=== PATIENT | male | born 1990 | race Two or more races ===

== ENCOUNTER 2020-10-12 18:14 | Emergency (ER) | payer OTHER ==
[~2020-10-12] VITALS: Ht 167.6 cm; Wt 80.3 kg
[2020-10-12 19:30] VITALS: BP 146/89
--- NOTE | 2020-10-12 20:08 | RAD ---
EXAM: XR HAND_LEFT 3 VIEWS 10/12/2020 7:38 PM CLINICAL INDICATION: Finger pain COMPARISON: None TECHNIQUE: 3 views of the left hand FINDINGS: There is a mildly displaced fracture of the fourth distal phalanx tuft. No other fracture or malalignment. Joint spaces are maintained. No focal soft tissue abnormality. IMPRESSION: Fourth distal phalanx tuft fracture. Electronically signed by: Patience Camacho MD (10/12/2020 8:06 PM) [id number]
--- NOTE | 2020-10-12 20:28 | PHYS DOC ---
Past Medical History Past Medical History: Other Additional Past Medical Histor: herniated discs Past Surgical History: No Surgical History Smoking Status: Current Every Day Smoker Additional Information: 0.5 ppd Alcohol Use: Occasionally General Adult EDM: Chief Complaint: FINGER INJURY HPI: HPI: Patient is a 30 year old male who presents to the ED today complaining of left ring finger injury, patient states he was installing a vending machine door and it fell on his left hand hitting the left ring finger and left middle finger. Patient is right-handed. Describes the pain as throbbing and constant. Rates the pain as 10 out of 10. States the pain is worse on touching the tip of the left ring finger. Review of Systems: Review of Systems: Constitutional: Denies fever or chills. [] Musculoskeletal: Reports left fingers injury Integument: Denies rash. [] Neurologic: Denies headache, focal weakness or sensory changes. [] Endocrine: Denies polyuria or polydipsia. [] Lymphatic: Denies swollen glands. [] Psychiatric: Denies depression or anxiety. [] Heart Score: C/O Chest Pain: N/A Risk Factors: Risk Factors: DM, Current or recent (<one month) smoker, HTN, HLP, family history of CAD, obesity. Risk Scores: Score 0 - 3: 2.5% MACE over next 6 weeks - Discharge Home Score 4 - 6: 20.3% MACE over next 6 weeks - Admit for Clinical Observation Score 7 - 10: 72.7% MACE over next 6 weeks - Early Invasive Strategies Allergies: Allergies: Allergies Coded Allergies Type Severity Reaction Last Updated Verified Penicillins Allergy Unknown 10/12/20 Yes Physical Exam: PE: Constitutional: Well developed, well nourished, no acute distress, non-toxic appearance. [] Skin: Warm, dry, no erythema, no rash. [] Back: No tenderness, no CVA tenderness. [] Extremities: Left ring finger with mild swelling on the tip of the finger, bruising noted on the tip of the finger. Tenderness on palpation of the tip of the finger. Adequate radial, medial, ulnar sensation to the left fingers. Full range of motion to the left fingers. +2 left radial pulse. Cap refill less than 2 seconds to left fingers Neurologic: Alert and oriented X 3, normal motor function, normal sensory function, no focal deficits noted. [] Psychologic: Affect normal, judgement normal, mood normal. [] Current Patient Data: Vital Signs: Vital Signs Date Time Temp Pulse Resp B/P (MAP) Pulse Ox O2 Delivery O2 Flow Rate FiO2 10/12/20 19:30 98.7 90 16 146/89 (108) 97 98.7 10/12/20 19:14 Room Air EKG: EKG: [] Radiology/Procedures: Radiology/Procedures: []PROCEDURE: HAND LEFT 3V EXAM: XR HAND_LEFT 3 VIEWS 10/12/2020 7:38 PM CLINICAL INDICATION: Finger pain COMPARISON: None TECHNIQUE: 3 views of the left hand FINDINGS: There is a mildly displaced fracture of the fourth distal phalanx tuft. No other fracture or malalignment. Joint spaces are maintained. No focal soft tissue abnormality. IMPRESSION: Fourth distal phalanx tuft fracture. Electronically signed by: Patience Camacho MD (10/12/2020 8:06 PM) [id number] DICTATED and SIGNED BY: PATIENCE CAMACHO MD DATE: 10/12/20 [id number] 0 Course & Med Decision Making: Course & Med Decision Making Pertinent Labs and Imaging studies reviewed. (See chart for details) This is a 30-year-old male patient presented to the ED today with left ring finger injury. Left hand x-rays interpreted by radiologist were noted for fourth distal phalanx tuft fracture. Patient was placed in a finger splint by the operations and maintenance technician, neurovascular exam done by me is intact. Follow-up with Ortho or hand surgeon. Provided hand surgeon information. Dragon Disclaimer: Dragon Disclaimer: This electronic medical record was generated, in whole or in part, using a voice recognition dictation system. Departure Departure Impression: Primary Impression: Closed fracture of tuft of distal phalanx of finger Disposition: 01 HOME / SELF CARE / HOMELESS Condition: STABLE Referrals: NO PCP (PCP) Address: [address] [place] [id number] Patient Instructions: Finger Fracture Additional Instructions: You fractured the tip of your left ring finger. Wear the splint provided. Call hand surgery and set up an appointment for follow-up. Try to ice and elevate the extremity. hand surgery contact information Address: [address] [place] [id number] JEANNETTE SHEPHERD EXECUTIVE COACH Oct 12, 2020 20:28
== END 2020-10-12 20:35 | disposition home or self-care (01) ==
LOC: ER 18:14
DX: S62.635A Displaced fracture of distal phalanx of left ring finger, initial encounter for closed fracture (principal); F17.200 Nicotine dependence, unspecified, uncomplicated; Z88.0 Allergy status to penicillin; W20.8XXA Other cause of strike by thrown, projected or falling object, initial encounter; Y93.89 Activity, other specified; Y92.89 Other specified places as the place of occurrence of the external cause; Y99.8 Other external cause status
CPT/HCPCS: 29130; 73130; 99283